=== PATIENT | female | born 1975 | race Caucasian/White ===

== ENCOUNTER 2020-12-28 11:06 | Outpatient (REF) | payer OTHER, SELFPAY ==
[2020-12-28 12:37] LABS: MANUAL DIFF FLAG NO
[2020-12-28 12:40] LABS: Basophils Percent Auto 0.6 % (0-2); Eosinophils Absolute Auto 0.3 X10*3/uL (0.0-0.4); Eosinophils Percent Auto 3.6 % (0-4); Hematocrit 36.6 % (37-47); Hemoglobin 12.3 g/dl (12.0-16.0); Imm Gran Abs Auto 0.02 X10*3/uL (0.00-0.03); Imm Gran Pct Auto 0.3 % (0.0-0.4); Lymphocytes Absolute Auto 2.7 X10*3/uL (1.2-4.9); Lymphocytes Percent Auto 38.1 % (20-40); Mean Corpuscular HGB Conc 33.6 g/dl (31.0-35.0); Mean Corpuscular Hemoglobin 26.9 pg (27.0-33.0); Mean Corpuscular Volume 79.9 fL (80-98); Mean Platelet Volume 10.8 fL (9.4-12.3); Monocytes Absolute Auto 0.5 X10*3/uL (0.1-1.2); Monocytes Percent Auto 7.7 % (2-11); Neutrophils Absolute Auto 3.5 X10*3/uL (2.0-8.3); Neutrophils Percent Auto 49.7 % (45-73); Platelet Count 227 X10*3/uL (160-400); Red Blood Count 4.58 X10*6/uL (4.20-5.50); Red Cell Distribution Width 12.8 % (11.0-16.0)
[2020-12-28 13:05] LABS: Alanine Aminotransferase 6 U/L (0-31); Albumin Level 4.2 g/dL (3.5-5.0); Alkaline Phosphatase 64 U/L (39-117); Anion Gap 11 (12-20); Aspartate Amino Transferase 12 U/L (5-31); Bilirubin Total 0.5 mg/dL (0.0-1.0); Blood Urea Nitrogen 10 mg/dL (9-16); Calcium 8.7 mg/dL (8.4-10.2); Carbon Dioxide 27 mmol/L (22-29); Chloride 105 mmol/L (96-108); Cholesterol 183 mg/dL; Estimated Glomerular Filt Rate > 60; Glucose Fasting 92 mg/dL (60-99); HDL Cholesterol 40 mg/dL; LDL Cholesterol Calculated 117 mg/dl; Potassium 3.8 mmol/L (3.3-5.1); Sodium 139 mmol/L (135-145); Total Protein 6.8 g/dL (6.5-8.0); Triglycerides 132 mg/dL
== END 2020-12-28 11:07 | disposition home or self-care (01) ==
LOC: HO.MANLDS 11:06
PROVIDERS: PCP Internal Medicine; Visit Provider Internal Medicine
DX: Z00.00 Encounter for general adult medical examination without abnormal findings (principal)
CPT/HCPCS: 36415; 80053; 80061; 84443; 85025

== ENCOUNTER 2023-10-29 10:34 | Outpatient (REF) | payer OTHER, SELFPAY ==
[2023-10-29 13:10] LABS: MANUAL DIFF FLAG NO
[2023-10-29 13:43] LABS: Basophils Percent Auto 0.4 % (0-2); Eosinophils Absolute Auto 0.1 X10*3/uL (0.0-0.4); Hematocrit 39.6 % (37.0-47.0); Hemoglobin 13.1 g/dl (12.0-16.0); Imm Gran Abs Auto 0.02 X10*3/uL (0.00-0.03); Imm Gran Pct Auto 0.3 % (0.0-0.4); Lymphocytes Absolute Auto 2.7 X10*3/uL (1.2-4.9); Lymphocytes Percent Auto 39.9 % (20-40); Mean Corpuscular HGB Conc 33.1 g/dl (31.0-35.0); Mean Corpuscular Hemoglobin 26.6 pg (27.0-33.0); Mean Corpuscular Volume 80.5 fL (80.0-98.0); Mean Platelet Volume 10.9 fL (9.4-12.3); Monocytes Absolute Auto 0.4 X10*3/uL (0.1-1.2); Monocytes Percent Auto 6.4 % (2-11); Neutrophils Absolute Auto 3.6 x10*3/uL (2.0-8.3); Platelet Count 254 X10*3/uL (160-400); Red Blood Count 4.92 X10*6/uL (4.20-5.50); Red Cell Distribution Width 13.3 % (11.0-16.0); White Blood Count 6.9 X10*3/uL (4.8-10.8)
[2023-10-29 14:01] LABS: Estimated Average Glucose 111 mg/dL; Hemoglobin A1c % 5.5 % (<6.0)
[2023-10-29 14:18] LABS: Alanine Aminotransferase 13 U/L (0-31); Albumin Level 4.2 g/dL (3.5-5.0); Alkaline Phosphatase 61 U/L (39-117); Amylase 37 U/L (28-100); Anion Gap 11 (12-20); Aspartate Amino Transferase 15 U/L (5-31); Bilirubin Total 0.4 mg/dL (0.0-1.0); Blood Urea Nitrogen 9 mg/dL (9-16); Calcium 9.2 mg/dL (8.4-10.2); Carbon Dioxide 28 mmol/L (22-29); Chloride 105 mmol/L (96-108); Cholesterol 196 mg/dL (<200); Estimated Glomerular Filt Rate > 60; Glucose Random 95 mg/dL (60-115); HDL Cholesterol 45 mg/dL (>40); LDL Cholesterol Calculated 126 mg/dL (<100); Lipase 19 U/L (8-78); Potassium 3.6 mmol/L (3.3-5.1); Sodium 140 mmol/L (135-145); Total Protein 7.1 g/dL (6.5-8.0); Triglycerides 126 mg/dL (<150)
[2023-10-29 14:42] LABS: Free T4 (Free Thyroxine) 0.86 ng/dL (0.71-1.85); Gamma Glutamyl Transpeptidase 19 U/L (7-33); Thyroid Stimulating Hormone 0.89 uIU/mL (0.32-4.0); Vitamin D 25-OH Total 24.1 ng/mL (>30)
[2023-10-29 17:12] LABS: Folate 6.8 ng/mL (> or = 4.0); Vitamin B12 210 pg/mL (200-900)
[2023-10-30 16:23] LABS: Follicle Stimulating Hormone 5.2 mIU/mL; Lutenizing Hormone 4.3 mIU/mL
[2023-11-03 01:43] LABS: Estradiol Ultra Sensitive 114 pg/mL
[2023-11-04 17:58] LABS: Progesterone <0.1 ng/mL
[2023-11-07 17:43] LABS: Estrogen 299 pg/mL
== END 2023-10-29 10:35 | disposition home or self-care (01) ==
LOC: HO.MANLDS 10:34
PROVIDERS: Visit Provider Physician Assistant
DX: Z00.00 Encounter for general adult medical examination without abnormal findings (principal); Z13.6 Encounter for screening for cardiovascular disorders; R10.11 Right upper quadrant pain; I10 Essential (primary) hypertension; Z90.711 Acquired absence of uterus with remaining cervical stump
CPT/HCPCS: 36415; 80053; 80061; 82150; 82306; 82607; 82670; 82672; 82746; 82977; 83001; 83002; 83036; 83690; 84144; 84439; 84443; 85025

== ENCOUNTER 2024-11-04 09:34 | Outpatient (REF) | payer OTHER, SELFPAY ==
--- OUTSIDE RECORDS SUMMARY | 2024-11-04 10:50 | XMS_ITS | Continuity of Care Document ---
Author Organization [facility], [facility] Address [address] [place] [address] [place] [address] Assessment No assessment recorded. Plan of Treatment Reminders Order Date Submit Date Provider Last Modified By Organization Details Last Modified Time Details Appointments ANNUAL EXAM 2024 09:00A M DR ALEGRIA Not available Not available Not available ANNUAL EXAM 2025 09:30A M DR ALEGRIA Not available Not available Not available Lab CMP, serum or plasma 2024 025 [facility], [address] [place] [address], [id number], 11/04/2024 09:30:34 CBC 2024 025 [facility], [address] [place] [address], [id number], 11/04/2024 09:30:33 lipid panel, blood 2024 025 [facility], [address] [place] [address], [id number], 11/04/2024 09:30:34 Referral None recorded . Procedures None recorded . Surgeries None recorded . Imaging None recorded . Medication Orders None recorded . Patient TargetsNo targets recorded. Patient InstructionsNo instructions recorded. Reason for Referral None Reported. Problems Name Problem SNOMED Code Status Onset Date Resolution Date Notes Provider Name and Address Organization Details Recorded Time Gastroeso phageal reflux disease 534820909 Active 2017 [facility] 08:54:22 Otitis 44939441 Active 2017 Nneka Germian deepa, [facility] 5 08:54:34 Essential hypertens ion 96602248 Active 2017 Nneka arenas, [facility] 5 08:54:22 Allergic arthritis 63289348 [facility] 08:[facility] Allergic rhinitis 16039712 Active 2020 Remi Alegria, DO [address], [place], [address], [facility] 1 10:45:39 COVID-19 836579114 Active 2021 Nneka arenas, [facility] 5 08:54:34 Anxiety 64631146 [facility] 08:54:22 Acute sinusitis 10502512 Active 2023 Nneka arenas, [facility] 5 08:54:34 Pain of right shoulder joint 447082427397 07822 [facility] 08:54:[facility] Cyst of skin 198332589 [facility] 08:54:34 Right flank pain 126912661 Active 2023 Nneka arenas [facility] 5 08:54:34 Supraspin atus tendiniti s 254282731 [facility] 08:54:22 Supraspin atus tendiniti s 088518204 Active 2023 Nneka arenas, [facility] 5 08:54:22 Tendiniti s of right rotator cuff 277446563496 06748 Active 2023 Nneka arenas [facility] 5 08:54:22 Dyspnea 436334695 [facility] 08:54:22 Acute bronchiti s 72043503 Active 2023 Nneka arenas, [facility] 5 08:54:33 Cough 17930282 [facility] 08:54:34 Acute urinary tract infection 569535167 [facility] 20[facility] 08:54:34 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 Procedures Surgical History Date Name Laterality Status Provider Name and Address Organization Details Recorded Time Corticosteroid Injection completed Remi Alegria DO [address] [place] [address], [phone], [facility] 07/16/2024 16:45:49 024 Corticosteroid Injection completed Remi Alegria DO [address] [place] [address], [phone], [facility] 03/21/2024 15:51:52 024 Corticosteroid Injection completed Remi Alegria DO [address] [place] [address], [phone], [facility] 11/16/2023 09:42:56 Imaging Results None recorded. Procedure Notes None recorded. Medical Equipment None Reported. Allergies Allergen ID Allergen Name Allergen Category Reaction Reaction Severity Criticality Documentation Date Start Date Code Code System Note Provider Name and Address Organization Details Recorded Time 2396 Ceclor medicatio n Not available Not available Not available 06/05/201838479 5 RxNorm Brenda Balickelaine arenas [facility] 8 11:31:06 2398 doxycycli ne Not available Not available Not available Not available 06/05/2018 3640 RxNorm Brenda arenas [facility] 8 11:31:13 2399 Substance with sulfonami de structure and antibacte rial mechanism of action (substanc e) medicatio n Not available Not available Not available 06/05/2018 39535 8003 SNOMED Brenda arenas [facility] 8 11:31:23 2400 latex environme nt,medica tion Not available Not available Not available 06/05/2018 90529 91 RxNorm orall y Brenda arenas [facility] 8 11:31:34 Medications Name Sig Start Date Stop Date Status Note LastModified by Organization Details LastModified Time azithromycin 250 mg tablet TAKE 2 TABLETS (500 MG) BY ORAL ROUTE ONCE DAILY FOR 1 DAY THEN 1 TABLET (250 MG) BY ORAL ROUTE ONCE DAILY FOR 4 DAYS 11/04 completed Not Available Not Available Not Available meloxicam 15 mg tablet TAKE ONE TABLET BY MOUTH EVERY DAY 09/01 completed Not Available Not Available Not Available pantoprazole 20 mg tablet,delay ed release TAKE ONE TABLET BY MOUTH EVERY DAY active Not Available Not Available No t Available oxycodone-ac etaminophen 5 mg-325 mg tablet 11/04 completed Not Available Not Available Not Available amoxicillin 875 mg tablet Take 1 tablet every 12 hours by oral route for 7 days. 11/04 completed Not Available Not Available Not Available lorazepam 0.5 mg tablet Take 1 tablet twice a day by oral route as needed for 30 days. 11/04 completed Not Available Not Available Not Available pantoprazole 40 mg tablet,delay ed release Take 1 tablet every day by oral route for 90 days. 11/04 completed Not Available Not Available Not Available oseltamivir 75 mg capsule 06/05 completed Not Available Not Available Not Available omeprazole 20 mg capsule,pedro yed release Take 1 capsule every day by oral route for 90 days. 10/28 completed Not Available Not Available Not Available lisinopril 5 mg tablet TAKE ONE TABLET BY MOUTH EVERY DAY active Not Available Not Available No t Available methylpredni solone 4 mg tablets in a dose pack Take 1 dose pk by oral route. 11/04 completed Not Available Not Available Not Available naproxen 500 mg tablet 10/28 completed Not Available Not Available Not Available amoxicillin 875 mg-potassium clavulanate 125 mg tablet 11/04 completed Not Available Not Available Not Available oxycodone 5 mg tablet 12/22 completed Not Available Not Available Not Available nitrofuranto in monohydrate/ macrocrystal s 100 mg capsule Take 1 capsule every 12 hours by oral route for 7 days. 11/04 completed Not Available Not Available Not Available Zyrtec 10 mg capsule Take 1 capsule every day by oral route. active Not Available Not Available No t Available Probiotic daily active Not Available Not Lucie ilable Not Available Lo Loestrin Fe 1 mg-10 mcg (24)/10 mcg (2) tablet 06/05 completed Not Available Not Available Not Available Vitals Date Recorded Body height Body mass index (BMI) Body weight Heart rate Oxygen saturation Oxygen saturation in Arterial blood by Pulse oximetry Systolic blood pressure Diastolic blood pressure Provider Name and Address Organization Details Last Updated DateTime 5 157.48 cm 38 kg/m2 69268.2 1 g 90 /min 99 % 99 % 124 mm[Hg] 82 mm[Hg] Nneka Soto [facility] 5 09:07:54 Social History Question Answer Notes LastModified by Organizat ion Details LastModified Time Tobacco Smoking Status Never Smoker Not Available [facility] 06/29/2020 03:36:24 What Was The Date Of Your Most Recent Tobacco Screening? 11/04/2024 [email or web address] Information not available 11/04/2024 Sex: Unknown Functional Status None recorded. Mental Status None recorded. Family History Nothing Reported. Medical History Condition Response Coronary Artery Disease N Gout N Other N Kidney Stones N Blood Diseases N Blood Transfusion N Breast Cancer N Lung Disease N Depression N COPD N Defects or Inherited Disease N Anxiety Disorder N Muscle, Joint, or Bone Problems N Obesity N Vision or Eye Problems N Arthritis N Infertility N Polyps N Mental Disorder N Cancer N Stroke N Varicosities N Endometriosis N Bladder or Kidney Problems N High Cholesterol N Liver Disease N Fibromyalgia N Headaches N Kidney Disease N Allergies/Hayfever N Heart Problems N Hospitalizations N Thyroid Problems N GI Problems N Eating Disorder N Skin Problems N Anemia N MRSA exposure N Constipation N Mental Illness N Diabetes N Ovarian Cancer N Seizures/Epilepsy N Tuberculosis N Congestive Heart Failure (CHF) N Eczema N Abuse/Domestic Violence N Diverticulitis N Asthma N Reflux/GERD N Hepatitis N Heart Disease N Pulmonary Embolism N Hypertension N Chicken Pox N Autism Spectrum Disorder (ASD) N Osteoporosis N Gynecological History Statement/Question Response Date of LMP 04/28/2019 Obstetrics History GPAL:G 0 P 0 0 0 0 Immunizations Vaccine Type Date Status Note Provider Nam e and Address Organization Details Recorded Time COVID-19, mRNA, LNP-S, PF, 30 mcg/0.3 mL dose 06/21/2021 completed ADEOLA BOOTHE [address] [place], [address], [facility] 06/22/2021 07:05:29 Tdap 03/09/2020 completed Brenda arenas [facility] 03/09/2020 16:51:57 COVID-19, mRNA, LNP-S, PF, 30 mcg/0.3 mL dose 11/07/2020 completed Sujata arenas [facility] 12/28/2020 10:27:58 COVID-19, mRNA, LNP-S, PF, 30 mcg/0.3 mL dose 10/12/2020 completed Sujata arenas [facility] 12/28/2020 10:28:40 Past Encounters Encounter ID Performer Location Encounter Start Date Encounter Closed Date Diagnosis/Indication Diagnosis SNOMED-CT Code Diagnosis ICD10 Code Diagnosis Note [id number] Remi Alegria [facility] [address] [facility],[place] [address] 11/04/2024 08:59:43 11/04/2024 10:09:15 Active or passive immunization 220346976 Z23 utd with vacc Adult heal th examination 231941819 Z00.00 doing well overall Essential hypertension 72562159 I10 Health Concerns Section Related Observation LastModified by Organization Detai ls LastModified Time None Recorded Concern Status LastModified by Organization Details LastModified Time None Recorded Payers Encounter Date Sequence Insurance Name Policy Number Policy Davies Covered Member ID Davies Member ID Guarantor Name 11/04/2024 1 [facility] [id number] Dustin Bush [id number] Gayle Bush Notes Date Note Type Note Provider Name a nd Address Organization Details Recorded Time 5 text/html Annual WellnessReported bypatient.Diet and Nutrition:healthy diet; discussed vitamin and supplement use; discussed portion control; discussed maintaining calcium balance; discussed diet improvement Fracture Risk:no history of fractures; no recent explained fracture; no sudden unexplained fractures; no previous musculoskeletal injuries Physical Activity:exercises on a regular basis; recent increase in physical activity; good physical condition Additional Lifestyle Factors:no tobacco use; drinks alcohol (mild-moderate) Depression Risk:never feels sad, empty, or tearful; no loss of interest in activities; no significant changes in weight; no sleep disturbances or insomnia; no agitation; no loss of energy; no feelings of worthlessness or guilt; no thoughts of suicide; no history of depression; no history of mood disorders Hearing:no loss of hearing Vision:no vision problems; recent eye examNotes:sees dentist [address] Dao ([employer]) for f/u after partial hysterectomy patient has been having increased anxiety and depression the patient reports that her her right flank into her back no gallbladder, no uterus the patient reports that she has a bad right shoulderagreed to imaging first Remi Alegria, DO [address], [place], [address], [facility] 11/04/2024 09:27:33 OBGyn Episode No OBEpisode recorded.
--- OUTSIDE RECORDS SUMMARY | 2024-11-04 10:51 | XMS_ITS | Data Portability ---
Author Organization [facility] Home Service Address [address] [place] [address] Assessment Encounter Date Assessment Date Assessment LastModified by Organization Details LastModified Time 03/21/2024 03/21/2024 [id number] [place] [id number] (BANQUET ATTENDANT) : [facility] MUST MEET 2 OF 3 ELEMENTS: PROBLEMS, DATA OR RISK ELEMENT 1: PROBLEMS ADDRESSED (LOW): 2 OR MORE SELF-LIMITED OR MINOR PROBLEMS OR 1 STABLE CHRONIC ILLNESS OR 1 ACUTE UNCOMPLICATED ILLNESS OR INJURY ELEMENT 2: DATA TO BE REVISED AND ANALYZED (LOW) MUST MEET 1 OF 2 CATEGORIES: CATEGORY 1. REVIEW OF PRIOR EXTERNAL NOTES/RESULTS, ORDERING OF TEST(S) CATEGORY 2. ASSESSMENT REQUIRING INDEPENDENT HISTORIAN(S) INCLUDE WHO THE HISTORIAN IS AND RELATION TO PT AND WHY PT IS UNABLE TO GIVE COMPLETE HISTORY ELEMENT 3: RISK (LOW) RISK OF COMPLICATIONS AND/OR MORBIDITY OR MORTALITY OF PATIENT MANAGEMENT PROVIDER MUST THOROUGHLY DOCUMENT ALL OF THE ELEMENTS COVERED Not available 03/21/2024 15:52:05 07/16/2024 07/16/2024 [id number] [place] [id number] (BANQUET ATTENDANT) : [facility] MUST MEET 2 OF 3 ELEMENTS: PROBLEMS, DATA OR RISK ELEMENT 1: PROBLEMS ADDRESSED (LOW): 2 OR MORE SELF-LIMITED OR MINOR PROBLEMS OR 1 STABLE CHRONIC ILLNESS OR 1 ACUTE UNCOMPLICATED ILLNESS OR INJURY ELEMENT 2: DATA TO BE REVISED AND ANALYZED (LOW) MUST MEET 1 OF 2 CATEGORIES: CATEGORY 1. REVIEW OF PRIOR EXTERNAL NOTES/RESULTS, ORDERING OF TEST(S) CATEGORY 2. ASSESSMENT REQUIRING INDEPENDENT HISTORIAN(S) INCLUDE WHO THE HISTORIAN IS AND RELATION TO PT AND WHY PT IS UNABLE TO GIVE COMPLETE HISTORY ELEMENT 3: RISK (LOW) RISK OF COMPLICATIONS AND/OR MORBIDITY OR MORTALITY OF PATIENT MANAGEMENT PROVIDER MUST THOROUGHLY DOCUMENT ALL OF THE ELEMENTS COVERED Not available 07/16/2024 16:46:26 Plan of Treatment Reminders Order Date Submit Date Provider Last Modified By Organization Details Last Modified Time Details Appointments ANNUAL EXAM 2024 09:00A M DR ALEGRIA Not available Not available Not available ANNUAL EXAM 2025 09:30A M DR ALEGRIA Not available Not available Not available Lab CMP, serum or plasma 2024 025 [facility], [address] [place] [address], [address], 11/04/2024 09:30:34 CBC 2024 025 [facility], [address] [place] [address], [address], 11/04/2024 09:30:33 lipid panel, blood 2024 025 [facility], [address] [place] [address], [address], 11/04/2024 09:30:34 gamma-glu tamyl transfera se (ggt), serum 2023 024 [facility], [address] [place] [address], [address], 10/29/2023 10:22:52 amylase + lipase, serum 2023 024 [facility], [address] [place] [address], 7[address], 10/29/2023 10:22:52 TSH + free T4, serum 2023 024 [facility], [address] [place] [address], [address], 10/30/2023 11:26:13 hemoglobi n A1c, QN, blood 2023 024 [facility], [address] [place] [address], [address], 10/29/2023 10:23:29 vitamin B12 + folate, serum or blood 2023 024 [facility], [address] [place] [address], 8[address], 10/29/2023 10:23:29 vitamin D, 25-hydrox y, total, serum 2023 024 [facility], [address] [place] [address], [address], 10/29/2023 10:23:28 CMP, serum or plasma 2023 024 [facility], [address] [place] [address], [address], 10/29/2023 10:23:29 lipid panel, blood 2023 024 [facility], [address] [place] [address], [address], 10/29/2023 10:23:29 CBC w/ auto diff 2023 024 [facility], [address] [place] [address], [address], 10/29/2023 10:23:29 estradiol , serum 2023 024 [facility], [address] [place] [address], [address], 11/05/2023 11:54:47 lh + FSH, serum 2023 024 [facility], [address] [place] [address], [address], 10/31/2023 11:46:13 progester one, serum 2023 024 [facility], [address] [place] [address], [address], 11/05/2023 11:54:47 estrogen, total, serum 2023 024 [facility], [address] [place] [address], [place], [address], 11/08/2023 11:36:35 Referral dermatolo gist referral 2023 024 [facility], [address] [place], [address], 11/26/2023 09:07:52 Procedures None recorded. Surgeries None recorded. Imaging XR, shoulder, 2 or more view 2023 024 [facility], [address] [place] [address], [address], 10/29/2023 12:28:41 Medication Orders meloxicam 15 mg tablet 2023 024 [email or web address], [address] [place], [address], 09/01/2024 10:49:49 pantopraz ole 40 mg tablet,de layed release 2023 024 [facility], [address] [place], [address], 11/04/2024 09:02:21 lorazepam 0.5 mg tablet [address] [facility] [address] [facility], [address] [place], [address], 11/04/2024 09:05:46 Patient TargetsNo targets recorded. Patient InstructionsNo instructions recorded. Reason for Referral Customer Solutions Coordinator Referral for C yst of skin cyst of the right forearm, getting bigger Referring Physician: Lois Rose, Internal Medicine, Encounter Date: 10/29/2023 Results Created Date Observation Date Name Description Value Unit Range Abnormal Flag Note LastModifiedBy Organization Detail LastModifiedTime 10/29/19 24 10/29/2023 XR, shoul mary, 2 or more view No observ ation record ed. [email or web address] [facility] [address] [place], [address], 10/29/2023 14:01:36 11/05/19 24 11/05/2023 MRI, shoul mary, w/o contr ast No observ ation record ed. [email or web address] Not Available 11/04 11:37:22 01/07/20 24 01/07/2024 XR, chest , 2 view No observ ation record ed. [email or web address] [facility] [address] [place], [address], 03/21/2024 12:19:41 05/16/20 24 05/16/2024 MAMMO , scree selena, digit al, bilat eral No observ ation record ed. [email or web address] [facility] - Callback Orders Only [address] [place], [address], 07/16/2024 16:42:47 Result Notes None recorded. Problems Name Problem SNOMED Code Status Onset Date Resolution Date Notes Provider Name and Address Organization Details Recorded Time Gastroeso phageal reflux disease 066834110 Active 2017 Nneka arenas [facility] 5 08:54:22 Otitis 21006095 Active 2017 Nneka arenas [facility] 5 08:54:34 Essential hypertens ion 72508808 Active 2017 Nneka arenas [facility] 5 08:54:22 Allergic arthritis 74300263 Active 2018 [facility] 5 08:54:22 Allergic rhinitis 03659198 Active 2020 Remi Alegria, DO [address] [facility], [place], [address], [facility] 1 10:45:39 COVID-19 147799619 Active 2021 Nneka arenas [facility] 5 08:54:34 Anxiety 06221404 Active 2023 Nneka Germain null, [facility] 5 08:54:22 Acute sinusitis 75340124 Active 2023 Nneka Germain null, [facility] 5 08:54:34 Pain of right shoulder joint 309509660906 68140 Active 2023 Nneka Germain null, [facility] 5 08:54:34 Cyst of skin 464227314 Active 2023 Nneka Germain null, [facility] 5 08:54:34 Right flank pain 578537151 Active 2023 Nneka Germain null, [facility] 5 08:54:34 Supraspin atus tendiniti s 065544018 Active 2023 Nneka Germain null, [facility] 5 08:54:22 Supraspin atus tendiniti s 791948309 Active 2023 Nneka Germain null, [facility] 5 08:54:22 Tendiniti s of right rotator cuff 568622551077 97189 Active 2023 Nneka Germain null, [facility] 5 08:54:22 Dyspnea 997981724 Active 2023 Nneka Germain null, [facility] 5 08:54:22 Acute bronchiti s 25294892 Active 2023 Nneka Germain null, [facility] 5 08:54:33 Cough 95644349 Active 2023 Nneka Germain null, [facility] 5 08:54:34 Acute urinary tract infection 903667833 Active 2023 Nneka Germain null, [facility] 5 08:54:34 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 Procedures Surgical History Date Name Laterality Status Provider Name and Address Organization Details Recorded Time Corticosteroid Injection completed Remi GarsiaBianca Mayaenrike, DO [address] [place], [address], [facility] 07/16/2024 16:45:49 024 Corticosteroid Injection completed Remi GarsiaBianca Mayaenrike, DO [address] [place], [address], [facility] 03/21/2024 15:51:52 Corticosteroid Injection completed Remi Alegria, DO [address] [place], [address], [facility] 11/16/2023 09:42:56 Imaging Results Imaging Date Name Status LastModified by Organiz ation Details LastModified Time 10/29/2023 XR, shoulder, 2 or more view completed [email or web address] [facility] [address] [place], [address], 10/29/2023 14:01:36 11/05/2023 MRI, shoulder, w/o contrast completed [email or web address] Information not available 11/05/2023 11:37:22 01/07/2024 XR, chest, 2 view completed [email or web address] [address] [place], [address], 03/21/2024 12:19:41 05/16/2024 MAMMO, screening, digital, bilateral completed [email or web address] [facility] - Callback Orders Only [address] [place], [address], 07/16/2024 16:42:47 Procedure Notes None recorded. Medical Equipment None Reported. Allergies Allergen ID Allergen Name Allergen Category Reaction Reaction Severity Criticality Documentation Date Start Date Code Code System Note Provider Name and Address Organization Details Recorded Time 2397 Ceclor medicatio n Not available Not available Not available 06/05/201862846 5 RxNorm Brenda arenas [facility] 8 11:31:06 2398 doxycycli ne Not available Not available Not available Not available 06/05/2018 3640 RxNorm Brenda arenas [facility] Internal [facility] 8 11:31:13 2399 Substance with sulfonami de structure and antibacte rial mechanism of action (substanc e) medicatio n Not available Not available Not available 06/05/2018 38120 8003 SNOMED Brenda arenas [facility] 8 11:31:23 2400 latex environme nt,medica tion Not available Not available Not available 06/05/2018 92824 91 RxNorm orall y Brenda arenas [facility] Internal [facility] 8 11:31:34 Medications Name Sig Start Date [...] and Address Organization Details Last Updated DateTime 4 157.48 cm 42.8 kg/m2 547383. 61 g 98 /min 98 % 98 % 138 mm[Hg] 80 mm[Hg] Kim Foster [facility] 4 10:00:33 Date Recorded Body height Body mass index (BMI) Body weight Heart rate Oxygen saturation Oxygen saturation in Arterial blood by Pulse oximetry Systolic blood pressure Diastolic blood pressure Provider Name and Address Organization Details Last Updated DateTime 5 157.48 cm 38 kg/m2 61070.2 1 g 90 /min 99 % 99 % 124 mm[Hg] 82 mm[Hg] Nneka Germain [facility] 5 09:07:54 Social History Question Answer Notes LastModified by Organizat ion Details LastModified Time Tobacco Smoking Status Never Smoker Not Available [employer] 06/29/2020 03:36:24 What Was The Date Of Your Most Recent Tobacco Screening? 11/04/2024 [email or web address] Information not available 11/04/2024 Sex: Unknown Functional Status None recorded. Mental Status None recorded. Family History Nothing Reported. Medical History Condition Response Coronary Artery Disease N Other N Gout N Blood Diseases N Kidney Stones N Breast Cancer N Blood Transfusion N Lung Disease N Depression N COPD [...] mcg/0.3 mL dose 06/21/2021 completed ADEOLA BOOTHE [address] [place] [address], [address] 06/22/2021 07:05:29 Tdap 03/09/2020 completed Brenda arenas [facility] 03/09/2020 16:51:57 COVID-19, mRNA, LNP-S, PF, 30 mcg/0.3 mL dose 11/07/2020 completed Sujata arenas [facility] 12/28/2020 10:27:58 COVID-19, mRNA, LNP-S, PF, 30 mcg/0.3 mL dose 10/12/2020 seema arenas [facility] 12/28/2020 10:28:40 Past Encounters Encounter ID Performer Location Encounter Start Date Encounter Closed Date Diagnosis/Indication Diagnosis SNOMED-CT Code Diagnosis ICD10 Code Diagnosis Note [id number] Celeste Jauregui NP, S [facility] [address] [facility] [address] [address] 06/05/2018 11:25:16 06/05/2018 14:18:18 Essential hypertension 28310142 I10 [id number] Celeste Jauregui NP, S [facility] [address] [facility] [address] [address] 06/17/2018 10:22:23 06/17/2018 12:34:29 Essential hypertension 16381599 I10 [id number] Celeste Jauregui NP, S [facility] [address] [facility] [address] [address] 10/07/2018 10:42:02 10/07/2018 11:14:08 Essential hypertension 05921956 I10 Gastroesop hageal reflux disease 778233032 K21.9 well controlled Seasonal a llergic rhinitis 952699024 J30.2 stable w/Zyrtec [id number] Celeste Jauregui NP, [facility] [address] [facility] [address] [address] 01/13/2019 11:00:18 01/13/2019 13:44:08 Essential hypertension 01733653 I10 stable [id number] Remi Alegria [facility] [address] [facility] [address] [address] 12/23/2019 10:23:33 12/23/2019 11:20:46 Adult health examination 222010930 Z00.00 doing well overall Active or passive immunization 140151658 Z23 [id number] Remi Alegria [facility] [address] [facility] [address] [address] 12/28/2020 10:23:12 12/28/2020 10:56:59 Active or passive immunization 118212271 Z23 utd with vacc Adult heal th examination 697033688 Z00.00 doing well overall [id number] ADEOLA BOOTHE [facility] [address] [facility] [address] [address] 10/29/2023 09:55:20 10/29/2023 10:26:51 Active or passive immunization 962771709 Z23 stable Adult heal th examination 659530098 Z00.00 doing well overall Essential hypertension 96612348 I10 will set up with lab workstable BP Gastroesop hageal reflux disease 991212762 K21.9 will set up with pantoprazo le Anxiety 91215492 F41.1 will f/u with pigment processor who prescribed by Child Welfare Specialist Pain of ri ght shoulder joint 6689425222 9572014 M25.511 will set up with XR Right shoulder History of hysterectomy 707216751 Z90.711 will set up with hormonal testing Cyst of skin 854011144 L 72.8 will set up with dermatolog y Right flank pain 4056178 09 R10.11 additional lab work [id number] Remi Alegria [facility] [address] [place] [address] 11/16/2023 09:09:40 11/16/2023 09:52:48 Pain of right shoulder joint 6563373315 0755400 M25.511 well tolerated Tendinitis of right rotator cuff 8296751298 2573235 M67.813 will give meloxicam prn [id number] Remi Alegria [facility] [address] [place] [address] 03/21/2024 11:59:50 03/24/2024 17:07:40 Supraspinatus tendinitis 453040856 M67.811 well jakub [id number] Remi Alegria [facility] [address] [place] [address] 07/16/2024 16:18:48 07/16/2024 16:51:10 Supraspinatus tendinitis 440974262 M67.811 well jakub [id number] Remi Alegria [facility] [address] [place] [address] 11/04/2024 08:59:43 11/04/2024 10:09:15 Active or passive immunization 674681169 Z23 utd with vacc Adult heal th examination 368140711 Z00.00 doing well overall Essential hypertension 04523750 I10 Health Concerns Section Related Observation LastModified by Organization Detai ls LastModified Time None Recorded Concern Status LastModified by Organization Details LastModified Time None Recorded Advance Directives Directive None Recorded Payers Encounter Date Sequence Insurance Name Policy Number Policy Davies Covered Member ID Davies Member ID Guarantor Name 10/29/2023 1 [facility] [id number] Dustin Velarde Rachelle [id number] Gayle Bush 11/16/2023 1 [employer] [id number] Dustin Velarde Rachelle [id number] Gayle Kiranbodeau 03/21/2024 1 [employer] [id number] Dustin Velarde Rachelle [id number] Gayle Bush 07/16/2024 1 [employer] [id number] Dustin Velarde Rachelle [id number] Gayle Rachelle 11/04/2024 1 R [id number] Dustin Kiranbodeau [id number] Gayle Bush Notes Date Note Type Note Provider Name a sd Address Organization Details Recorded Time text/html Annual WellnessReported bypatient.Diet and Nutrition:healthy diet; [...] examNotes:sees dentist [address] Dao (AREA INTELLIGENCE TECHNICIAN) for f/u after partial hysterectomy patient has been having increased anxiety and depression the patient reports that her her right flank into her back no gallbladder, no uterus the patient reports that she has a bad right shoulderagreed to imaging first ADEOLA BOOTHE [address] [place] [address], [address], [facility] 10/29/2023 10:26:23 4 text/html right shoulder has been very unconfortable and she has known A C jt arthritis and also a supra and infra spinatus tendonitis Remi Alegria, DO [address] [place] [address], [address], [facility] 11/16/2023 13:31:14 4 text/html here for her right shoulder maximiliano inj now noteing progressive pain Remi Alegria, DO [address] [place] [address], [address], [facility] Internal [facility] 03/21/2024 15:52:32 4 text/html here for a maximiliano inj Remi Alegria, DO [address] [place] [address], [address], [facility] 07/16/2024 16:50:21 5 text/html Annual WellnessReported bypatient.Diet and Nutrition:healthy [...] examNotes:sees dentist [address] Dao (AREA INTELLIGENCE TECHNICIAN) for f/u after partial hysterectomy patient has been having increased anxiety and depression the patient reports that her her right flank into her back no gallbladder, no uterus the patient reports that she has a bad right shoulderagreed to imaging first Remi Alegria DO [address] [place] [address], [address], [facility] 11/04/2024 09:27:33 OBGyn Episode No OBEpisode recorded.
[2024-11-04 13:21] LABS: MANUAL DIFF FLAG NO
[2024-11-04 13:50] LABS: Basophils Percent Auto 0.4 % (0-2); Eosinophils Absolute Auto 0.1 X10*3/uL (0.0-0.4); Eosinophils Percent Auto 1.5 % (0-4); Hematocrit 39.5 % (37.0-47.0); Hemoglobin 13.4 g/dl (12.0-16.0); Imm Gran Abs Auto 0.01 X10*3/uL (0.00-0.03); Imm Gran Pct Auto 0.1 % (0.0-0.4); Lymphocytes Absolute Auto 2.8 X10*3/uL (1.2-4.9); Lymphocytes Percent Auto 37.9 % (20-40); Mean Corpuscular HGB Conc 33.9 g/dl (31.0-35.0); Mean Corpuscular Hemoglobin 27.6 pg (27.0-33.0); Mean Corpuscular Volume 81.4 fL (80.0-98.0); Mean Platelet Volume 11.1 fL (9.4-12.3); Monocytes Absolute Auto 0.5 X10*3/uL (0.1-1.2); Monocytes Percent Auto 7.2 % (2-11); Neutrophils Absolute Auto 3.9 x10*3/uL (2.0-8.3); Neutrophils Percent Auto 52.9 % (45-73); Platelet Count 238 X10*3/uL (160-400); Red Blood Count 4.85 X10*6/uL (4.20-5.50); Red Cell Distribution Width 13.6 % (11.0-16.0); White Blood Count 7.5 X10*3/uL (4.8-10.8)
[2024-11-04 14:08] LABS: Alanine Aminotransferase 17 U/L (0-31); Albumin Level 4.3 g/dL (3.5-5.0); Alkaline Phosphatase 55 U/L (39-117); Anion Gap 11 (12-20); Aspartate Amino Transferase 23 U/L (5-31); Bilirubin Total 0.4 mg/dL (0.0-1.0); Blood Urea Nitrogen 10 mg/dL (9-16); Calcium 9.2 mg/dL (8.4-10.2); Carbon Dioxide 26 mmol/L (22-29); Chloride 109 mmol/L (96-108); Cholesterol 173 mg/dL (<200); Estimated Glomerular Filt Rate > 60; Glucose Random 91 mg/dL (60-115); HDL Cholesterol 42 mg/dL (>40); LDL Cholesterol Calculated 108 mg/dL (<100); Potassium 3.9 mmol/L (3.3-5.1); Sodium 142 mmol/L (135-145); Total Protein 7.5 g/dL (6.5-8.0); Triglycerides 119 mg/dL (<150)
== END 2024-11-04 09:35 | disposition home or self-care (01) ==
LOC: HO.MANLDS 09:34
PROVIDERS: Visit Provider Internal Medicine
DX: I10 Essential (primary) hypertension (principal)
CPT/HCPCS: 36415; 80053; 80061; 85025